=== PATIENT | female | born 1945 | race Caucasian/White ===

== ENCOUNTER 2021-09-22 10:10 | Observation (INO) | payer MEDICARE ==
[~2021-09-22] VITALS: Ht 165.1 cm; Wt 60.0 kg
[~2021-09-22 10:10] MED LIST: ADLT ASA LOW81 MG PO; ASPIRIN LOW DOS81 M1 PO; ATORVASTATIN CA80 MG PO; B COMPLE3 PO; B12-ACTIVE1 MG PO; BUSPAR10 M1 OR; CIPROFLOXACN500 MG PO; COQ-10100 M1 PO; EFFEXOR75 MG PO; FISH OIL 1200 M1 CAP PO; FLEXERIL PO; FLEXERIL10 MG PO; FLUOXETINE20 MG PO; FLUOXETINE40 MG PO; KETOROLAC0.5 % OD; LEVOTHYROXIN75 MC1 PO; LEVOTHYROXIN88 MC1 PO; LIPITOR20 M1 PO; LISINOPRIL10 MG PO; MACROBID100 MG PO; MAGNESIUM 250 M1 TAB PO; NAPROSYN500 MG PO; NO HOME MEDS; PAROXETINE25 MG PO; PLAVIX75 MG PO; SG ASA LOW81 M1 PO; SIMVASTATIN40 MG PO; TUMS ULTRA 101000 MG PO; ULTRAM50 M1 PO; VENLAFAXINE HCL75 M1 PO; VENLAFAXINE75 M1 PO; VITAMIN B-122500 MCG; ZOCOR20 MG PO
[2021-09-22 10:45] LABS: HEMATOCRIT 37.9 % (37.0-47.0); HEMOGLOBIN 11.8 g/dl (12.0-16.0); IMMATURE GRANULOCYTES 0.2 % (0.0-5.0); MEAN CELL VOLUME 102.7 fL CALC (80.0-100.0); MEAN CORPUSCULAR HGB CONC 31.1 g/dL CAL (32.0-36.0); NEUT# 2.77 thou/uL (2.00-7.15); RED BLOOD COUNT 3.69 mill/uL (4.20-5.60); RED CELL DISTRI WIDTH 14.9 % (11.5-15.5)
[2021-09-22 11:04] LABS: ALBUMIN 3.9 g/dL (3.2-5.0); ALKALINE PHOSPHATASE 58 u/l (38-126); ANION GAP 12 (6-22 (CALC)); BILIRUBIN, TOTAL 0.5 mg/dL (0.0-1.4); BUN 17 mg/dL (8-23); BUN/CREATININE RATIO 16 (12-20 (CALC)); CARBON DIOXIDE 24 mmol/l (22-30); CHLORIDE 109 mmol/l (95-108); GFR FOR AFR.AMER. > 60 ML/MIN (>=60 (CALC)); GFR OTHER RACES 54 ML/MIN (>=60 (CALC)); POTASSIUM 4.5 mmol/l (3.5-5.1); SGOT/AST 28 u/l (9-36); SODIUM 140 mmol/l (137-146)
[2021-09-22 11:34] LABS: INTERNATIONAL NORMALIZED RATIO 0.9 RATIO (0.7-1.3); PROTHROMBIN TIME 9.6 SECONDS (9.0-12.5)
[2021-09-22 12:23] LABS: URINE BILIRUBIN - DIPSTICK NEGATIVE (NEGATIVE); URINE BLOOD DIPSTICK NEGATIVE (NEGATIVE); URINE COLOR YELLOW; URINE GLUCOSE - DIPSTICK NEGATIVE (NEGATIVE); URINE KETONE NEGATIVE (NEGATIVE); URINE LEUK ESTERASE NEGATIVE (NEGATIVE); URINE PROTEIN - DIPSTICK NEGATIVE (NEG-TRACE); URINE SPECIFIC GRAVITY <=1.005; URINE UROBILINOGEN - DIPSTICK 0.2 E.U./dL (0.2)
[2021-09-22 12:24] LABS: URINE NITRITE - DIPSTICK NEGATIVE (Negative)
[2021-09-22 14:53] LABS: C-REACTIVE PROTEIN < 0.5 mg/dL (0-0.9); MAGNESIUM 2.2 mg/dL (1.6-2.3)
[2021-09-22] MEDS ORDERED: PRED FORTE1 % OD (17:07)
[2021-09-22] MEDS ORDERED: MOXIFLOXACIN HC0.5 % OD (17:11)
[2021-09-22 19:10] VITALS: BP 112/70
[2021-09-23] VITALS (7 sets, daily range): BP systolic 85–139; BP diastolic 40–82
[2021-09-23 05:38] LABS: HEMATOCRIT 32.8 % (37.0-47.0); HEMOGLOBIN 10.4 g/dl (12.0-16.0); MEAN CELL VOLUME 101.9 fL CALC (80.0-100.0); MEAN CORPUSCULAR HGB 32.3 pG CALC (26.0-32.0); MEAN CORPUSCULAR HGB CONC 31.7 g/dL CAL (32.0-36.0); RED BLOOD COUNT 3.22 mill/uL (4.20-5.60); RED CELL DISTRI WIDTH 14.9 % (11.5-15.5)
[2021-09-23 05:53] LABS: CREATININE 1.2 mg/dL (0.5-1.0); POTASSIUM 4.2 mmol/l (3.5-5.1)
[2021-09-23] MEDS ORDERED: ARICEPT PO (12:55)
[2021-09-23] MEDS ORDERED: NAMENDA1 TAB PO (12:56)
[2021-09-23] MEDS ORDERED: ATORVASTATIN CA80 MG PO (12:57)
== END 2021-09-23 13:50 | disposition home or self-care (01) ==
LOC: ED 10:10 → MS2 13:27
PROVIDERS: Emergency Medicine; ADMIT Hospitalist; ATTEND Hospitalist
DX: F10.27 Alcohol dependence with alcohol-induced persisting dementia (principal); R47.89 Other speech disturbances; I10 Essential (primary) hypertension; E03.9 Hypothyroidism, unspecified; I25.10 Atherosclerotic heart disease of native coronary artery without angina pectoris; E78.5 Hyperlipidemia, unspecified; Z86.73 Personal history of transient ischemic attack (TIA), and cerebral infarction without residual deficits; Z79.82 Long term (current) use of aspirin; Z20.822 Contact with and (suspected) exposure to COVID-19
CPT/HCPCS: Q9967

== ENCOUNTER 2021-10-20 08:58 | Emergency (ER) | payer MEDICARE ==
[~2021-10-20] VITALS: Ht 165.1 cm; Wt 59.0 kg
[~2021-10-20 08:58] MED LIST changes: +ARICEPT PO; +MOXIFLOXACIN HC0.5 % OD; +NAMENDA1 TAB PO; +PRED FORTE1 % OD
[2021-10-20] MEDS ORDERED: FLUOXETINE20 MG PO (09:27)
[2021-10-20] MEDS ORDERED: LEVOTHYROXIN50 MCG PO (09:28)
[2021-10-20 09:36] LABS: HEMATOCRIT 37.7 % (37.0-47.0); HEMOGLOBIN 12.3 g/dl (12.0-16.0); IMMATURE GRANULOCYTES 0.3 % (0.0-5.0); MEAN CELL VOLUME 98.7 fL CALC (80.0-100.0); MEAN CORPUSCULAR HGB 32.2 pG CALC (26.0-32.0); MEAN CORPUSCULAR HGB CONC 32.6 g/dL CAL (32.0-36.0); NEUT# 2.43 thou/uL (2.00-7.15); RED BLOOD COUNT 3.82 mill/uL (4.20-5.60); RED CELL DISTRI WIDTH 14.4 % (11.5-15.5)
[2021-10-20 10:13] LABS: ALBUMIN 4.2 g/dL (3.2-5.0); BILIRUBIN, TOTAL 0.5 mg/dL (0.0-1.4); CREATININE 1.1 mg/dL (0.5-1.0); POTASSIUM 3.3 mmol/l (3.5-5.1); TOTAL PROTEIN 7.4 g/dL (6.3-8.2)
[2021-10-20 11:48] LABS: URINE BILIRUBIN - DIPSTICK NEGATIVE (NEGATIVE); URINE BLOOD DIPSTICK TRACE-INTACT (NEGATIVE); URINE COLOR YELLOW; URINE GLUCOSE - DIPSTICK NEGATIVE (NEGATIVE); URINE KETONE NEGATIVE (NEGATIVE); URINE LEUK ESTERASE NEGATIVE (NEGATIVE); URINE PROTEIN - DIPSTICK NEGATIVE (NEG-TRACE); URINE SPECIFIC GRAVITY <=1.005; URINE UROBILINOGEN - DIPSTICK 0.2 E.U./dL (0.2)
[2021-10-20 12:03] LABS: URINE NITRITE - DIPSTICK NEGATIVE (Negative)
[2021-10-20 12:22] VITALS: BP 122/74
== END 2021-10-20 12:30 | disposition home or self-care (01) ==
LOC: ED 08:58
PROVIDERS: Family Medicine
DX: U07.1 COVID-19 (principal); R51.9 Headache, unspecified; R94.31 Abnormal electrocardiogram [ECG] [EKG]; I10 Essential (primary) hypertension; E78.5 Hyperlipidemia, unspecified; Z86.73 Personal history of transient ischemic attack (TIA), and cerebral infarction without residual deficits

== ENCOUNTER 2022-10-01 08:02 | Emergency (ER) | payer MEDICARE ==
[~2022-10-01] VITALS: Ht 165.1 cm; Wt 47.0 kg
[~2022-10-01 08:02] MED LIST changes: +LEVOTHYROXIN50 MCG PO
[2022-10-01] MEDS ORDERED: DOXY-CAPS100 MG PO (08:07)
[2022-10-01 08:26] VITALS: BP 139/98
[2022-10-01] MEDS ORDERED: ZOFRAN4 MG/TAB PO (09:10)
== END 2022-10-01 09:17 | disposition home or self-care (01) ==
LOC: ED 08:02
DX: H00.011 Hordeolum externum right upper eyelid (principal); I10 Essential (primary) hypertension; E78.5 Hyperlipidemia, unspecified; Z86.73 Personal history of transient ischemic attack (TIA), and cerebral infarction without residual deficits